=== PATIENT | male | born 1945 | race African-American/Black ===

== ENCOUNTER 2024-04-23 14:10 | Emergency (ER) | payer OTHER ==
[2024-04-23 14:25] VITALS: BMI 29.6
[2024-04-23] MEDS: SODIUM CHLORIDE 1,000 ML IV STA (14:50)
[2024-04-23 15:04] LABS: HEMATOCRIT 43.6 % (35.4-49); HEMOGLOBIN 13.5 G/dL (11.7-16.9); MCH 27.1 pg (25.7-33.7); MCHC 30.9 g/dl (32.0-35.9); MEAN PLT VOLUME 8.2 fl (7.5-11.1); PLATELET COUNT 147.6 10^3/uL (134-434); RBC 4.96 10^6/uL (4.00-5.60); RDW 14.7 % (11.9-15.9); WHITE BLOOD COUNT 4.5 10^3/uL (4.0-10.8)
[2024-04-23 15:23] LABS: ALBUMIN 4.4 g/dl (3.4-5.0); ALK PHOS 38 U/L (45-117); ANION GAP 7 mmol/L (4-13); BILIRUBIN,TOTAL 1.1 mg/dl (0.2-1); CALCIUM 9.4 mg/dl (8.5-10.1); CHLORIDE 107 mmol/L (98-107); CO2 28 mmol/L (21-32); CREATININE 1.4 mg/dl (0.6-1.3); GLUCOSE,RANDOM 114 mg/dl (74-106); POTASSIUM 4.1 mmol/L (3.5-5.1); SGOT/AST 16 U/L (15-37); SGPT/ALT 13 U/L (7-52); SODIUM 142 mmol/L (136-145); TOT PROT 6.5 g/dl (6.4-8.2)
[2024-04-23 16:40] VITALS: BP 115/75; PULSE 86; RESP 16; TEMP 98
[2024-04-23 16:57] LABS: PLATELET ESTIMATE ADEQUATE
== END 2024-04-23 17:17 | disposition home or self-care (01) ==
LOC: FER 14:10
PROC: 3E0337Z Introduction of Electrolytic and Water Balance Substance into Peripheral Vein, Percutaneous Approach (ICD-10-PCS; principal; 2024-04-23)
DX: R55 Syncope and collapse (principal)
CPT/HCPCS: 36415; 80053; 82962; 84484; 85025; 93005; 96360; 99284-25